=== PATIENT | female | born 1990 | race Asian ===

== ENCOUNTER 2019-08-27 14:17 | Observation (INO) | payer SELFPAY ==
[~2019-08-27] VITALS: Ht 157.5 cm; Wt 63.5 kg
[2019-08-27] MEDS ORDERED: TERBUTALINE SULFATE 1MG/ML VIAL SUBCUT PRN (15:00)
== END 2019-08-27 16:20 | disposition home or self-care (01) ==
LOC: 8 EST LDRP 14:17
PROVIDERS: ADMIT Obstetrics & Gynecology; ATTEND Obstetrics & Gynecology
DX: O62.9 Abnormality of forces of labor, unspecified (principal); O26.893 Other specified pregnancy related conditions, third trimester; R10.9 Unspecified abdominal pain; Z3A.33 33 weeks gestation of pregnancy
CPT/HCPCS: 96372; 99281; G0378; J3105; 59412